=== PATIENT | male | born 1960 | race Caucasian/White ===

== ENCOUNTER 2024-05-10 19:21 | Inpatient (IN) | payer BC, OTHER ==
[2024-05-10] MEDS: ASPIRIN 81 MG PO STA (22:29)
[2024-05-10] MEDS: hydrALAZINE HCL 20 MG/ML 1 ML VIAL IVP STA (22:30)
[2024-05-10 23:17] LABS: Basophils % (A) 0 %; Eosinophils # (A) 0.1 k/uL (0-0.7); Eosinophils % (A) 1 %; HGB 13.1 gm/dL (13.0-17.5); Lymphocytes # (A) 2.1 k/uL (1.0-4.8); Lymphocytes % (A) 32 %; MCH 29.5 pg (25.0-35.0); MCHC 31.3 g/dL (31.0-37.0); MCV 94.4 fL (80.0-100.0); Mean Platelet Volume 9.4; Monocytes # (A) 0.4 k/uL (0-1.0); Monocytes % (A) 7 %; Neutrophils # (A) 3.9 k/uL (1.3-7.7); Neutrophils % (A) 58 %; Platelet Count 343 k/uL (150-450); RBC 4.45 m/uL (4.30-5.90); RDW 12.8 % (11.5-15.5); WBC 6.7 k/uL (3.8-10.6)
[2024-05-10 23:44] LABS: ALT 19 U/L (4-49); AST 33 U/L (17-59); African American GFR (CKD) 45 (>60 ml/min/1.73 sqM); Albumin 4.2 g/dL (3.5-5.0); Alkaline Phosphatase 89 U/L (38-126); Anion Gap 5 mmol/L; Blood Urea Nitrogen 25 mg/dL (9-20); Calcium 9.4 mg/dL (8.4-10.2); Carbon Dioxide 25 mmol/L (22-30); Chloride 109 mmol/L (98-107); Glucose 104 mg/dL (74-99); Magnesium 1.9 mg/dL (1.6-2.3); Non-African American GFR(CKD) 39 (>60 ml/min/1.73 sqM); Potassium 4.6 mmol/L (3.5-5.1); Sodium 139 mmol/L (137-145); Total Bilirubin 0.7 mg/dL (0.2-1.3); Total Protein 6.9 g/dL (6.3-8.2)
[2024-05-11] MEDS: NITROGLYCERIN SL TABS 0.4 MG TAB SUBLINGUAL PRN (00:11)
[2024-05-11 00:23] LABS: Partial Thromboplastin Time 25.5 sec (22.0-30.0); Prothrombin Time 10.6 sec (10.0-12.5)
[2024-05-11] MEDS ORDERED: HEPARIN SODIUM 1,000 UN/ML (10ML VL) IV PRN (00:59)
--- NOTE | 2024-05-11 01:02 | ED ---
General Adult HPI - General Chief complaint: Recheck/Abnormal Lab/Rx Stated complaint: Hypertension Time Seen by Provider: 05/10/24 21:44 Source: patient Mode of arrival: ambulatory Limitations: no limitations - History of Present Illness Initial comments: 64-year-old male presenting for evaluation after elevated blood pressure. Patient is brought in by PD, during intake they noted that his blood pressure was elevated. Patient endorses chest pain intermittently for the last week. Located primarily on the left side of the chest. States that at times he does get some shortness of breath as well. States that the pain feels like a soreness sensation, sometimes it feels like a burning. Denies any cough congestion or sore throat. No fevers or chills. No nausea vomiting or abdominal pain. Symptoms are worse on exertion. - Related Data Allergies Allergy/AdvReac Type Severity Reaction Status Date / Time No Known Allergies Allergy Verified 05/10/24 19:28 Review of Systems ROS Statement: Those systems with pertinent positive or pertinent negative responses have been documented in the HPI. ROS Other: All systems not noted in ROS Statement are negative. Past Medical History History of Any Multi-Drug Resistant Organisms: None Reported Past Surgical History: Orthopedic Surgery Past Psychological History: No Psychological Hx Reported Smoking Status: Current every day smoker Past Alcohol Use History: Daily Past Drug Use History: Methamphetamine General Exam Limitations: no limitations General appearance: alert, in no apparent distress Head exam: Present: atraumatic, normocephalic, normal inspection Eye exam: Present: normal appearance, EOMI Neck exam: Present: normal inspection. Absent: meningismus Respiratory exam: Present: normal lung sounds bilaterally. Absent: respiratory distress, wheezes, rales, rhonchi, stridor Cardiovascular Exam: Present: regular rate, normal rhythm, normal heart sounds. Absent: systolic murmur, diastolic murmur, rubs, gallop, clicks Neurological exam: Present: alert, oriented X3 Psychiatric exam: Present: normal affect, normal mood Skin exam: Present: warm, dry Course Vital Signs 05/10/24 05/10/24 05/10/24 19:23 21:46 22:25 Temperature 97.5 F L Pulse Rate 48 L 86 86 Respiratory 18 16 19 Rate Blood Pressure 187/121 184/137 174/99 O2 Sat by Pulse 99 98 99 Oximetry 05/10/24 05/11/24 23:50 00:48 Temperature Pulse Rate 80 80 Respiratory 19 20 Rate Blood Pressure 163/104 135/86 O2 Sat by Pulse 99 97 Oximetry Medical Decision Making - Medical Decision Making Was pt. sent in by a medical professional or institution ([facility], ESTIMATOR, urgent care, hospital, or [facility]...) When possible be specific @ -No Did you speak to anyone other than the patient for history (EMS, parent, family, police, friend...)? What history was obtained from this source @ -Patient brought in by PD, spoke with Officer Did you review nursing and triage notes (agree or disagree)? Why? @ -I reviewed and agree with nursing and triage notes Were old charts reviewed (outside hosp., previous admission, EMS record, old EKG, old radiological studies, urgent care reports/EKG's, [facility] records)? Report findings @ -No old charts were reviewed Differential Diagnosis (chest pain, altered mental status, abdominal pain women, abdominal pain men, vaginal bleeding, weakness, fever, dyspnea, syncope, heada gregg, dizziness, GI bleed, back pain, seizure, CVA, palpatations, mental health, musculoskeletal)? @ -MDM Differential Chest Pain: Stable Angina, Unstable Angina, STEMI, NSTEMI Aortic Dissection, Pneumothorax, Musculoskeletal, Esophageal Spasm GERD, Cholecystitis, Pancreatitis, Zoster This is not meant to be an all-inclusive list. EKG interpreted by me (3pts min.). @ -EKG shows sinus rhythm with frequent ventricular premature complexes with occasional supraventricular premature complexes. Ventricular rate 84. AZ interval 131. QRS 89. QT 389. QTc 430. X-rays interpreted by me (1pt min.). @ -Formal chest x-ray report is pending, on my interpretation I see changes consistent with COPD with no obvious acute process CT interpreted by me (1pt min.). @ -None done U/S interpreted by me (1pt. min.). @ -None done What testing was considered but not performed or refused? (CT, X-rays, U/S, labs)? Why? @ -None What meds were considered but not given or refused? Why? @ -None Did you discuss the management of the patient with other professionals (professionals i.e. NEST[facility] Castillo, ESTIMATOR, lab, RT, psych nurse, adoption social worker, baton twirler, teacher, adult probation officer, shoe parts caser)? Give summary @ -I spoke with Dr. Gomez who accepts admission Was smoking cessation discussed for >3mins.? @ -No Was critical care preformed (if so, how long)? @ -No Were there social determinants of health that impacted care today? How? (Homelessness, low income, unemployed, alcoholism, drug addiction, pearce sportation, low edu. Level, literacy, decrease access to med. care, group home, rehab)? @ -No Was there de-escalation of care discussed even if they declined (Discuss DNR or withdrawal of care, Hospice)? DNR status @ -No What co-morbidities impacted this encounter? (DM, HTN, Smoking, COPD, CAD, Cancer, CVA, ARF, Chemo, Hep., AIDS, mental health diagnosis, sleep apnea, morbid obesity)? @ -None Was patient admitted / discharged? Hospital course, mention meds given and route, prescriptions, significant lab abnormalities, going to OR and other pertinent info. @ -64-year-old male brought in by PD. During his intake they noted his blood pressure to be high. Here he endorses intermittent chest pain that has been ongoing for about a week. History and physical examination are conducted. EKG shows frequent PVCs. Troponin is 0.072. Patient received aspirin, sublingual nitro. He started on heparin drip and Nitropaste. Chest x-ray shows no obvious acute process, there are changes consistent with COPD. Patient will be admitted for NSTEMI. Patient is agreeable with this plan. I discussed this case with my attending Dr. Monahan. Undiagnosed new problem with uncertain prognosis? @ -No Drug Therapy requiring intensive monitoring for toxicity (Heparin, Nitro, Insulin, Cardizem)? @ -Heparin Were any procedures done? @ -No Diagnosis/symptom? @ -NSTEMI Acute, or Chronic, or Acute on Chronic? @ -Acute Uncomplicated (without systemic symptoms) or Complicated (systemic symptoms)? @ -Complicated Side effects of treatment? @ -No Exacerbation, Progression, or Severe Exacerbation? @ -No Poses a threat to life or bodily function? How? (Chest pain, USA, NC, pneumonia, PE, COPD, DKA, ARF, appy, cholecystitis, CVA, Diverticulitis, Homicidal, Suicidal, threat to staff... and all critical care pts) @ -Yes - Lab Data Result diagrams: 05/10/24 22:27 05/10/24 22:27 Lab Results 05/10/24 05/10/24 05/10/24 Range/Units 22:27 22:27 22:27 WBC 6.7 (3.8-10.6) k/uL RBC 4.45 (4.30-5.90) m/uL Hgb 13.1 (13.0-17.5) gm/dL Hct 42.0 (39.0-53.0) % MCV 94.4 (80.0-100.0) fL MCH 29.5 (25.0-35.0) pg MCHC 31.3 (31.0-37.0) g/dL RDW 12.8 (11.5-15.5) % Plt Count 343 (150-450) k/uL MPV 9.4 Neutrophils % 58 % Lymphocytes % 32 % Monocytes % 7 % Eosinophils % 1 % Basophils % 0 % Neutrophils # 3.9 (1.3-7.7) k/uL Lymphocytes # 2.1 (1.0-4.8) k/uL Monocytes # 0.4 (0-1.0) k/uL Eosinophils # 0.1 (0-0.7) k/uL Basophils # 0.0 (0-0.2) k/uL PT 10.6 (10.0-12.5) sec INR 1.0 (<1.2) APTT 25.5 (22.0-30.0) sec Sodium 139 (137-145) mmol/L Potassium 4.6 (3.5-5.1) mmol/L Chloride 109 H (98-107) mmol/L Carbon Dioxide 25 (22-30) mmol/L Anion Gap 5 mmol/L BUN 25 H (9-20) mg/dL Creatinine 1.77 H (0.66-1.25) mg/dL Est GFR (CKD-EPI)AfAm 45 (>60 ml/min/1.73 sqM) Est GFR (CKD-EPI)NonAf 39 (>60 ml/min/1.73 sqM) Glucose 104 H (74-99) mg/dL Calcium 9.4 (8.4-10.2) mg/dL Magnesium 1.9 (1.6-2.3) mg/dL Total Bilirubin 0.7 (0.2-1.3) mg/dL AST 33 (17-59) U/L ALT 19 (4-49) U/L Alkaline Phosphatase 89 (38-126) U/L Troponin I (0.000-0.034) ng/mL Total Protein 6.9 (6.3-8.2) g/dL Albumin 4.2 (3.5-5.0) g/dL 05/10/24 Range/Units 22:27 WBC (3.8-10.6) k/uL RBC (4.30-5.90) m/uL Hgb (13.0-17.5) gm/dL Hct (39.0-53.0) % MCV (80.0-100.0) fL MCH (25.0-35.0) pg MCHC (31.0-37.0) g/dL RDW (11.5-15.5) % Plt Count (150-450) k/uL MPV Neutrophils % % Lymphocytes % % Monocytes % % Eosinophils % % Basophils % % Neutrophils # (1.3-7.7) k/uL Lymphocytes # (1.0-4.8) k/uL Monocytes # (0-1.0) k/uL Eosinophils # (0-0.7) k/uL Basophils # (0-0.2) k/uL PT (10.0-12.5) sec INR (<1.2) APTT (22.0-30.0) sec Sodium (137-145) mmol/L Potassium (3.5-5.1) mmol/L Chloride (98-107) mmol/L Carbon Dioxide (22-30) mmol/L Anion Gap mmol/L BUN (9-20) mg/dL Creatinine (0.66-1.25) mg/dL Est GFR (CKD-EPI)AfAm (>60 ml/min/1.73 sqM) Est GFR (CKD-EPI)NonAf (>60 ml/min/1.73 sqM) Glucose (74-99) mg/dL Calcium (8.4-10.2) mg/dL Magnesium (1.6-2.3) mg/dL Total Bilirubin (0.2-1.3) mg/dL AST (17-59) U/L ALT (4-49) U/L Alkaline Phosphatase (38-126) U/L Troponin I 0.072 H* (0.000-0.034) ng/mL Total Protein (6.3-8.2) g/dL Albumin (3.5-5.0) g/dL Disposition Clinical Impression: NSTEMI (non-ST elevated myocardial infarction) Disposition: ADMITTED IP TO THIS HOSP Condition: Serious Referrals: None,Stated [Primary Care Provider] - 1-2 days Time of Disposition: 01:35
[2024-05-11] MEDS: MAGNESIUM SULFATE-D5W PMX 1 GM in DEXTROSE/WATER 1 100ML.BAG IVPB SCH (01:32)
[2024-05-11] MEDS ORDERED: NALOXONE 0.4 MG/ML 1 ML VIAL IV PRN (01:32)
[2024-05-11] MEDS: MORPHINE SULFATE 4 MG/ML SYRINGE IVP STA (01:43)
[2024-05-11] MEDS: HEPARIN SOD,PORK IN 0.45% NACL 25,000 UNIT in 0.45% NACL 1 250ML.BAG IV SCH (01:44)
[2024-05-11] MEDS: HEPARIN SODIUM 1,000 UN/ML (10ML VL) IV ONE (01:45)
[2024-05-11] MEDS: NITROGLYCERIN OINT 1 INCH/GM PACKET TOPICAL STA (01:48)
--- NOTE | 2024-05-11 03:06 | XR ---
EXAM: XR Chest, 2 Views CLINICAL HISTORY: ITS.REASON XR Reason: Chest Pain TECHNIQUE: Frontal and lateral views of the chest. COMPARISON: None FINDINGS: Hardware: None. Lungs/pleura: Normal. No focal consolidation. No pleural effusion or pneumothorax. Heart/mediastinum: Normal. No cardiomegaly. Soft tissues: Tiny densities in the left axillary region. Bones: No acute fracture. Upper abdomen: Normal. Other: Surgical clips near the region of the GE junction. IMPRESSION: No acute disease identified.
--- NOTE | 2024-05-11 07:06 | P.HPIM ---
History of Present Illness H&P Date: 05/11/24 Chief Complaint: Chest pain 64-year-old male denies any significant past medical history Patient is accompanied by master police detective he was booked for drug abuse while doing the intake he was found to have elevated blood pressure for which she was brought into the hospital for evaluation. Upon presentation he started reporting left-sided chest pain that is been going on for couple weeks off-and-on not related to any physical activity he claims that usually starts while resting doing nothing rates the pain as 8 out of 10 in severity sharp sometimes pressure radiating to the left shoulder associated with some dizziness and shortness of breath denies any sweating nausea vomiting palpitations. Patient denies any cardiac history denies any cardiac workup he denies any h istory of GERD. Patient denies any drug abuse however has accompanied master police detective indicated that he is known for meth abuse Patient admits to tobacco smoking denies any heavy alcohol Patient denies any history of blood clots denies any cardiac workup denies any recent hospitalization denies any fevers chills coughing denies any abdominal pain diarrhea changes in bowel or urinary habits denies any GI bleeding review of systems Pertinent positives as noted in HPI. All other systems were reviewed and are negative on exam Constitutional: No acute distress, conversant, pleasant Eyes: Anicteric sclerae, moist conjunctiva, Pupils equal round reactive to light ENMT: NC/AT Oropharynx clear, no erythema, or exudates Neck: Supple, no masses, or JVD Lungs: Clear to auscultation Clear to percussion Normal respiratory effort, no accessory muscle use Cardiovascular: Heart regular in rate and rhythm, No murmurs, gallops, or rubs No peripheral edema Pain is reproducible upon palpating the chest Abdominal: Soft Nontender, no guarding, rebound or rigidity Abdomen moving with respiration Normoactive bowel sounds Extremities: No digital cyanosis No clubbing Pedal pulses intact and symmetrical Radial pulses intact and symmetrical No calf tenderness Psychiatric: Alert and oriented to person, place and time Neuro Muscles Strength 5/5 in all 4 extremities Sensation to light touch grossly present throughout Cranial nerves II-XII grossly intact Past Medical History History of Any Multi-Drug Resistant Organisms: None Reported Past Surgical History: Orthopedic Surgery Past Psychological History: No Psychological Hx Reported Smoking Status: Current every day smoker Past Alcohol Use History: Daily Past Drug Use History: Methamphetamine Medications and Allergies Allergies Allergy/AdvReac Type Severity Reaction Status Date / Time No Known Allergies Allergy Verified 05/10/24 19:28 Physical Exam Vitals: Vital Signs Temp Pulse Resp BP Pulse Ox 05/11/24 06:11 65 18 155/98 100 05/11/24 04:33 67 18 123/60 97 05/11/24 03:56 75 18 151/93 98 05/11/24 00:48 80 20 135/86 97 05/10/24 23:50 80 19 163/104 99 05/10/24 22:25 86 19 174/99 99 05/10/24 21:46 86 16 184/137 98 05/10/24 19:23 97.5 F L 48 L 18 187/121 99 Intake and Output 05/10/24 05/10/24 05/11/24 14:59 22:59 06:59 Other: Weight 67.132 kg Results CBC & Chem 7: 05/10/24 22:27 05/10/24 22:27 Labs: Abnormal Lab Results - Last 24 Hours (Table) 05/10/24 05/10/24 05/11/24 Range/Units 22:27 22:27 04:03 Chloride 109 H (98-107) mmol/L BUN 25 H (9-20) mg/dL Creatinine 1.77 H (0.66-1.25) mg/dL Glucose 104 H (74-99) mg/dL Troponin I 0.072 H* 0.062 H* (0.000-0.034) ng/mL Assessment and Plan Assessment: 64-year-old male with no significant past medical history coming in for uncontrolled blood pressure and chest pain I discussed case with ED doctor and accepted the admission for NSTEMI with anticipated length of stay more than 2 midnights NSTEMI Elevated troponin 0.072 trending down Nitro as needed for chest pain Cardiac monitoring EKG showing frequent PVCs and frequent supra ventricular premature atrial comp lexes otherwise no acute ST changes Chest x-ray showed no acute cardiopulmonary process Continue with aspirin daily Heparin drip for ACS protocol IV fluid hydration normal saline 75 cc/h Supplemental oxygen as needed Acute kidney injury BUN 25 creatinine 1.77 both elevated no establish baseline Sodium 139 unremarkable potassium 4.6 unremarkable Monitor renal function Monitor urine output Check renal ultrasound Polysubstance abuse Check urine drug screen Liver enzymes unremarkable total bili 0.7 AST 33 ALT 19 CBC unremarkable white count 6.7 hemoglobin 13 Full code DVT prophylaxis on heparin drip per ACS protocol
[2024-05-11] MEDS: ATORVASTATIN 40 MG TAB PO SCH (08:51)
[2024-05-11] MEDS: METOPROLOL TARTRATE 25 MG TAB PO SCH (08:51)
[2024-05-11] MEDS: ASPIRIN 81 MG PO SCH (08:51)
[2024-05-11] MEDS: SODIUM CHLORIDE 0.9% 1,000 ML IV SCH (08:51)
--- NOTE | 2024-05-11 09:36 | US ---
EXAMINATION TYPE: US kidneys/renal and bladder DATE OF EXAM: 05/11/2024 COMPARISON: NONE CLINICAL INDICATION: Male, 64 years old with history of CATHRYN; cathryn EXAM MEASUREMENTS: Right Kidney: 7.8 x 3.6 x 3.6 cm Left Kidney: 6.1 x 3.3 x 3.4 cm Right Kidney: Atrophic Left Kidney: Atrophic Bladder: anechoic Bilateral Jets seen: right only There is no evidence for hydronephrosis at this point in time. No nephrolithiasis is seen. No aniya s are identified. The urinary bladder is anechoic. Bilateral ureteral jets are seen. IMPRESSION: 1. Atrophic kidneys without evidence for obstructive uropathy. 2. Nonvisualization the left ureter. [facility], , 05/11/2024 9:34 AM
--- NOTE | 2024-05-11 12:13 | P.CRDCN ---
History of Present Illness History of present illness: HISTORY OF PRESENT ILLNESS: This is a 64-year-old male with a past medical history significant for polysubstance abuse. Patient does not follow with a junior web designer. We have been asked to see the patient in consultation for elevated troponins. Patient examined at the bedside in the emergency room. Patient is currently in [facility]. He reports he began to have to chest pain. He was brought to the ER for further evaluation. Patient reports generalized pain and discomfort. He also reports a headache. He reports these symptoms have been ongoing for the past few weeks. Patient was found to have significantly elevated blood pressures upon admission to the hospital with a reading of 187/121. He denies a previous history of hypertension. He does not take any prescription medications. He is a current smoker. He does report alcohol use and states he drinks 1/5 of liquor every 4 days. Patient also reports a history of drug abuse including methamphetamines and cocaine. DIAGNOSTICS: - EKG reveals sinus mechanism with PVCs. LVH. - Chest xray negative for acute process - Laboratory data: WBC 6.7. Hemoglobin 13.1. Platelet count 343. Sodium 139. Potassium 4.6. BUN 25. Creatinine 1.77. Magnesium 1.9. Troponin 0.072. 0.062. 0.065. - Current home cardiac medications include none. - No previous echocardiogram, stress test, or cardiac catheterization available in EMR for review REVIEW OF SYSTEMS: At the time of my exam: CONSTITUTIONAL: Denies fever or chills. HEENT: Denies blurred vision, vision changes, or eye pain. Denies hemoptysis CARDIOVASCULAR: Denies chest pain. Denies orthopnea. Denies PND. Denies palpitations RESPIRATORY: Denies shortness of breath. GASTROINTESTINAL: Denies abdominal pain. Denies nausea or vomiting. HEMATOLOGIC: Denies bleeding disorders. GENITOURINARY: Denies any blood in urine. SKIN: Denies pruitis. Denies rash. PHYSICAL EXAM: VITAL SIGNS: Reviewed. GENERAL: Well-developed in no acute distress. HEENT: Head is normocephalic. Pupils are equal, round. Sclerae anicteric. Mucous membranes of the mouth are moist. Neck supple. No JVD or thyromegaly LUNGS: Respirations even and unlabored. Lungs essentially clear to auscultation bilaterally. HEART: Regular rate and rhythm. S1 and S2 heard. ABDOMEN: Soft. Nondistended. Nontender. EXTREMITIES: Normal range of motion. No clubbing or cyanosis. Peripheral pulses intact. No lower extremity edema NEUROLOGIC: Awake and alert. Oriented x 3. ASSESSMENT: Hypertensive emergency Chest pain, likely secondary to above Elevated troponins, flat, likely type II GA secondary to uncontrolled blood pressures, however cannot rule out underlying CAD Acute kidney injury, baseline unknown History of polysubstance abuse Nicotine dependence Alcohol abuse, reports a 1/5 liquor every 4 days PLAN: Obtain 2D echo to assess cardiac structure and function Continue aspirin and atorvastatin Add amlodipine 10 mg daily for optimal blood pressure control Metoprolol contraindicated with cocaine use. Patient states he does not plan to go back to using drugs and would like to stay on the metoprolol. Instructed patient that if he uses cocaine in the future, metoprolol will need to be discontinued. Patient verbalized understanding. Continue IV heparin N.p.o. at midnight Patient to undergo Lexiscan stress test tomorrow Further recommendations pending patient course Nurse practitioner note has been reviewed by physician. Signing provider agrees with the documented findings, assessment, and plan of care documented by MANAGER SYSTEM as a scribe. Past Medical History History of Any Multi-Drug Resistant Organisms: None Reported Past Surgical History: Orthopedic Surgery Past Psychological History: No Psychological Hx Reported Smoking Status: Current every day smoker Past Alcohol Use History: Daily Past Drug Use History: Methamphetamine Medications and Allergies Home Medications Medication Instructions Recorded Confirmed Type No Known Home Medications 05/11/24 05/11/24 History Allergies Allergy/AdvReac Type Severity Reaction Status Date / Time No Known Allergies Allergy Verified 05/11/24 10:17 Physical Exam Vitals: Vital Signs Temp Pulse Resp BP Pulse Ox 05/11/24 08:48 87 16 164/120 99 05/11/24 06:11 65 18 155/98 100 05/11/24 04:33 67 18 123/60 97 05/11/24 03:56 75 18 151/93 98 05/11/24 00:48 80 20 135/86 97 05/10/24 23:50 80 19 163/104 99 05/10/24 22:25 86 19 174/99 99 05/10/24 21:46 86 16 184/137 98 05/10/24 19:23 97.5 F L 48 L 18 187/121 99 Intake and Output 05/10/24 05/11/24 05/11/24 22:59 06:59 14:59 Other: Weight 67.132 kg Results 05/10/24 22:27 05/10/24 22:27 Cardiac Enzymes 05/10/24 05/10/24 05/11/24 Range/Units 22:27 22:27 04:03 AST 33 (17-59) U/L Troponin I 0.072 H* 0.062 H* (0.000-0.034) ng/mL 05/11/24 Range/Units 06:44 AST (17-59) U/L Troponin I 0.065 H* (0.000-0.034) ng/mL Coagulation 05/10/24 05/11/24 Range/Units 22:27 06:44 PT 10.6 (10.0-12.5) sec APTT 25.5 46.5 H (22.0-30.0) sec CBC 05/10/24 Range/Units 22:27 WBC 6.7 (3.8-10.6) k/uL RBC 4.45 (4.30-5.90) m/uL Hgb 13.1 (13.0-17.5) gm/dL Hct 42.0 (39.0-53.0) % Plt Count 343 (150-450) k/uL Comprehensive Metabolic Panel 05/10/24 Range/Units 22:27 Sodium 139 (137-145) mmol/L Potassium 4.6 (3.5-5.1) mmol/L Chloride 109 H (98-107) mmol/L Carbon Dioxide 25 (22-30) mmol/L BUN 25 H (9-20) mg/dL Creatinine 1.77 H (0.66-1.25) mg/dL Glucose 104 H (74-99) mg/dL Calcium 9.4 (8.4-10.2) mg/dL AST 33 (17-59) U/L ALT 19 (4-49) U/L Alkaline Phosphatase 89 (38-126) U/L Total Protein 6.9 (6.3-8.2) g/dL Albumin 4.2 (3.5-5.0) g/dL Current Medications Generic Name Dose Route Start Last Admin Trade Name Freq PRN Reason Stop Dose Admin Aspirin 81 mg 05/11/24 09:00 05/11/24 08:51 Aspirin 81 Mg PO 81 mg DAILY JOSIE Administration Atorvastatin Calcium 40 mg 05/11/24 09:00 05/11/24 08:51 Atorvastatin 40 Mg Tab PO 40 mg DAILY JOSIE Administration Heparin Sodium (Porcine) 0 unit 05/11/24 00:59 Heparin Sodium 1,000 Un/Ml (10ml Vl) IV PER PROTOCOL PRN Low PTT Protocol Heparin Sodium/Sodium Chloride 250 mls @ 8.056 mls/hr 05/11/24 01:00 05/11/24 01:44 25,000 unit/ Sodium Chloride IV 12 units/kg/hr .Q24H JOSIE 8.056 mls/hr Administration Protocol 12 UNITS/KG/HR Sodium Chloride 1,000 mls @ 100 mls/hr 05/11/24 08:15 05/11/24 08:51 Saline 0.9% IV 100 mls/hr .Q10H JOSIE Administration Metoprolol Tartrate 25 mg 05/11/24 09:00 05/11/24 08:51 Metoprolol Tartrate 25 Mg Tab PO 25 mg BID JOSIE Administration Naloxone HCl 0.2 mg 05/11/24 01:32 Naloxone 0.4 Mg/Ml 1 Ml Vial IV Q2M PRN Opioid Reversal Nitroglycerin 0.4 mg 05/10/24 23:51 05/11/24 00:11 Nitroglycerin Sl Tabs 0.4 Mg Tab SUBLINGUAL 0.4 mg Q5M PRN Administration Chest Pain Intake and Output 05/10/24 05/11/24 05/11/24 22:59 06:59 14:59 Other: Weight 67.132 kg 05/10/24 22:27 05/10/24 22:27
[2024-05-11] MEDS: amLODIPine 10 MG TAB PO SCH (12:45)
[2024-05-11] MEDS: KETOROLAC 15 MG/ML 1 ML VIAL IVP STA (14:24)
[2024-05-11] MEDS: diphenhydrAMINE 50 MG/ML 1 ML VIAL IVP STA (14:27)
[2024-05-11] MEDS: PROCHLORPERAZINE INJ 10 MG/2 ML VIAL IVP STA (14:31)
--- NOTE | 2024-05-11 15:06 | P.PN ---
Subjective Progress Note Date: 05/11/24 Hospital course: Patient is a 64-year-old male with a past medical history of methamphetamine abuse and nicotine dependence. He presented to the emergency department in custody of [facility] with reports of chest pain. Upon arrival to our facility, patient underwent evaluation in the emergency department. Vital signs upon arrival show blood pressure 187/121, heart rate 48, respiratory rate 18, temp 97.5 F, and SpO2 of 99% on room air. EKG was completed showing normal sinus rhythm at 84 bpm with frequent PVCs. Chest x-ray negative for acute cardiopulmonary process. Labs completed and reviewed. CBC unremarkable. Coagulation profile normal findings. BMP showing hyperchloremia with chloride of 109 and elevated renal function with BUN of 25, creatinine 1.77, GFR of 39. Blood glucose 104. Magnesium 1.9. Liver profile unremarkable. Troponin elevated at 0.072. Patient started on heparin infusion for treatment of NSTEMI and admitted under our services for NSTEMI and acute kidney injury with consultation to cardiology. Troponins trended resulting at 0.072, 0.062, 0.065. Ultrasound kidneys and bladder showing atrophic kidneys without evidence for obstructive uropathy. Physical exam: Vital signs reviewed and stable. General: Nontoxic, no distress and appears stated age. Derm: Skin warm and dry, normal coloration for ethnicity. Head: Atraumatic, normocephalic and symmetric. Eyes: EOM's intact, no lid lag, and anicteric sclera Mouth: no lip lesions, mucus membranes moist Cardiovascular: regular rate and rhythm with normal S1S2, no murmur, positive posterior tibial pulses bilaterally, and cap refill < 2 seconds. Lungs: Respirations even, regular, and unlabored on room air. Lungs CTA bilaterally, no rhonchi, no rales, no wheezing, and no accessory muscle usage. Abdominal: soft, nontender to palpation, no guarding, no appreciable organomegaly Ext: ROM intact. No gross muscle atrophy, no edema, no contractures Neuro: Speech clear, face symmetrical and CN II-XII grossly intact with no noted focal neuro deficits Psych: Alert and oriented to person, place, time, and situation. Appropriate and pleasant affect. Assessment and Plan of Care: NSTEMI Hypertensive urgency History of methamphetamine abuse -Continue heparin infusion with close monitoring of PTT for goal therapeutic range of 45 to 79 seconds. -Patient to remain on continuous telemetry monitoring -Cardiology consulted, appreciate recommendations -Patient started on aspirin 81 mg daily, metoprolol 25 mg twice daily and atorvastatin 40 mg daily. -Order placed for urine drug screen -Echocardiogram to be completed. Acute kidney injury -Order placed for urinalysis -Ultrasound kidneys and bladder revealed atrophic kidneys without evidence for obstructive uropathy. -Patient to be provided with gentle IV fluid hydration with 0.9% normal saline at 100 cc/h. -Continue to monitor renal function closely. CODE STATUS: Full code DVT prophylaxis: Heparin Anticipated discharge date: Pending clinical course Anticipated discharge place: Return to detention in custody of [facility] Patient was seen independently by Nurse Pracitioner. This document was prepared using [employer] dictation software. Please allow for errors in naval surface fire support planner, while rare they do occur. Erik Jacobs NP rendered care for this patient independently, reviewed the findings and plan as documented in the note above. I did not physically speak with or examine the patient on this date. Objective - Vital Signs Vital signs: Vital Signs Temp 97.5 F L 05/10/24 19:23 Pulse 65 05/11/24 06:11 Resp 18 05/11/24 06:11 BP 155/98 05/11/24 06:11 Pulse Ox 100 05/11/24 06:11 FiO2 Intake & Output 05/10/24 05/11/24 05/11/24 18:59 06:59 18:59 Weight 67.132 kg - Labs CBC & Chem 7: 05/12/24 07:38 05/12/24 07:38 Labs: Abnormal Lab Results - Last 24 Hours (Table) 05/10/24 05/10/24 05/11/24 Range/Units 22:27 22:27 04:03 APTT (22.0-30.0) sec Chloride 109 H (98-107) mmol/L BUN 25 H (9-20) mg/dL Creatinine 1.77 H (0.66-1.25) mg/dL Glucose 104 H (74-99) mg/dL Troponin I 0.072 H* 0.062 H* (0.000-0.034) ng/mL 05/11/24 05/11/24 Range/Units 06:44 06:44 APTT 46.5 H (22.0-30.0) sec Chloride (98-107) mmol/L BUN (9-20) mg/dL Creatinine (0.66-1.25) mg/dL Glucose (74-99) mg/dL Troponin I 0.065 H* (0.000-0.034) ng/mL
[2024-05-12 05:29] LABS: Urine Alcohol Negative (Negative); Urine Barbiturate Negative (Negative); Urine Cocaine Negative (Negative); Urine Methadone Negative (Negative); Urine Opiates Negative (Negative); Urine Phencyclidine Negative (Negative)
[2024-05-12] MEDS ORDERED: AMINOPHYLLINE 500 MG/20 ML VIAL IV PRN (06:00)
[2024-05-12] MEDS ORDERED: REGADENOSON 0.4 MG/5 ML SYRINGE IV PRN (06:00)
[2024-05-12] MEDS ORDERED: CAFFEINE CITRATE 60 MG/3 ML VIAL IV PRN (06:00)
[2024-05-12] MEDS: ACETAMINOPHEN TAB 325 MG TAB PO PRN (06:16)
[2024-05-12 07:47] VITALS: RESP 16
[2024-05-12 08:03] LABS: Basophils % (A) 0 %; Eosinophils # (A) 0.1 k/uL (0-0.7); Eosinophils % (A) 2 %; HCT 43.2 % (39.0-53.0); HGB 14.1 gm/dL (13.0-17.5); Lymphocytes # (A) 2.3 k/uL (1.0-4.8); Lymphocytes % (A) 36 %; MCH 30.8 pg (25.0-35.0); MCHC 32.6 g/dL (31.0-37.0); MCV 94.4 fL (80.0-100.0); Mean Platelet Volume 9.5; Monocytes # (A) 0.4 k/uL (0-1.0); Monocytes % (A) 6 %; Neutrophils # (A) 3.4 k/uL (1.3-7.7); Neutrophils % (A) 54 %; Platelet Count 388 k/uL (150-450); RBC 4.57 m/uL (4.30-5.90); RDW 13.2 % (11.5-15.5); WBC 6.3 k/uL (3.8-10.6)
[2024-05-12 08:10] LABS: Partial Thromboplastin Time 26.3 sec (22.0-30.0)
[2024-05-12 08:42] LABS: ALT 17 U/L (4-49); AST 27 U/L (17-59); African American GFR (CKD) 54 (>60 ml/min/1.73 sqM); Albumin 3.7 g/dL (3.5-5.0); Alkaline Phosphatase 82 U/L (38-126); Anion Gap 9 mmol/L; Blood Urea Nitrogen 22 mg/dL (9-20); Carbon Dioxide 25 mmol/L (22-30); Chloride 106 mmol/L (98-107); Glucose 77 mg/dL (74-99); Non-African American GFR(CKD) 47 (>60 ml/min/1.73 sqM); Potassium 4.8 mmol/L (3.5-5.1); Sodium 140 mmol/L (137-145); Total Bilirubin 0.8 mg/dL (0.2-1.3); Total Protein 6.4 g/dL (6.3-8.2)
[2024-05-12 11:12] VITALS: TEMP 97.8
--- NOTE | 2024-05-12 11:13 | CA ---
Lexiscan Nuclear Stress Test Report Name: Ethan Davis Exam Date: 05/12/2024 09:45 Exam Location: [place] Stress Ht (in): 70 Wt (lb): 148 BSA: 1.84 Ordering Phys: Malinda Hoyt Referring Phys: MARY Technologist: James Valdivia Age: 64 Gender: M : 1960 Procedure CPT: Indications: Reflex order-Stress test ICD-10 Codes: Patient History: Medications: SEE CHART Meds past 24 hrs: Pretest Chest Pain: STRESS TEST Lexiscan Protocol Exercise Duration (min:sec): 01:[address] Depressions (mm): Angina Score: Rodrigez Score: Resting HR (bpm): 55 Peak HR (bpm): 77 Resting BP (mmHg): 140 / 81 Peak BP (mmHg): 136 / 83 MPHR: 154 Target HR: 131 % MPHR: 50 METS: 1.0 Total Dose: Peak Dose: Atropine: Double Product: 56271 BP Response: Stress Termination: INFUSION COMPLETE Stress Symptoms: No chest pain or symptoms Stress Summary: ECG ANALYSIS Resting ECG: Baseline EKG shows sinus rhythm changes of left ventricular hypertrophy Stress ECG: Patient was given intravenous Lexiscan as a protocol did not have chest pain or diagnostic ST segment depression occasional PVCs are noted CONCLUSIONS Inconclusive EKG portion of the stress test due to baseline EKG abnormalities Cardial lead portion of the stress test will be reported separately Dr. Kyler Unger MD (Electronically Signed) Final Date: 12 May 2024 11:12
--- NOTE | 2024-05-12 12:46 | NM ---
EXAMINATION TYPE: NM stress lexiscan cardiolite DATE OF EXAM: 05/12/2024 COMPARISON: NONE CLINICAL INDICATION: Male, 64 years old with history of CP; TECHNIQUE: After the intravenous administration of 10.5 mCi Tc 99m Sestamibi - Cardiolite resting SP ECT images acquired 45 minutes post injection. The patient received 0.4mg Lexiscan, 26.3 mCi Tc 99m Sestamibi - Stress images obtained [address] injection FINDINGS: Review of stress and rest SPECT images demonstrates small reversible defect apical septal wall. Gated analysis shows normal wall motion with an estimated left ventricular ejection fraction of 42 %. IMPRESSION: SPECT images demonstrates small reversible defect apical septal wall. [facility], , 05/12/2024 12:44 PM
--- NOTE | 2024-05-12 13:38 | P.PN ---
Subjective HISTORY OF PRESENT ILLNESS: This is a 64-year-old male with a past medical history significant for polysubstance abuse. Patient does not follow with a chief merchandising officer. We have been asked to see the patient in consultation for elevated troponins. Patient examined at the bedside in the emergency room. Patient is currently in [facility]. He reports he began to have to chest pain. He was brought to the ER for further evaluation. Patient reports generalized pain and discomfort. He also reports a headache. He reports these symptoms have been ongoing for the past few weeks. Patient was found to have significantly elevated blood pressures upon admission to the hospital with a reading of 187/121. He denies a previous history of hypertension. He does not take any prescription medications. He is a current smoker. He does report alcohol use and states he drinks 1/5 of liquor every 4 days. Patient also reports a history of drug abuse including methamphetamines and cocaine. DIAGNOSTICS: - EKG reveals sinus mechanism with PVCs. LVH. - Chest xray negative for acute process - Laboratory data: WBC 6.7. Hemoglobin 13.1. Platelet count 343. Sodium 139. Potassium 4.6. BUN 25. Creatinine 1.77. Magnesium 1.9. Troponin 0.072. 0.062. 0.065. - Current home cardiac medications include none. - No previous echocardiogram, stress test, or cardiac catheterization available in EMR for review 05/12/2024 Patient examined this afternoon at the bedside. Patient currently denies chest pain or pressure. He denies shortness of breath. Patient's blood pressure has improved. Recent reading of 135/71. Patient underwent Lexiscan stress test today revealing small reversible defect apical septal wall. Dr. Harrison independently reviewed Lexiscan images and no reversible ischemia noted per his interpretation. PHYSICAL EXAM: VITAL SIGNS: Reviewed. GENERAL: Well-developed in no acute distress. HEENT: Head is normocephalic. Pupils are equal, round. Sclerae anicteric. Mucous membranes of the mouth are moist. Neck supple. No JVD or thyromegaly LUNGS: Respirations even and unlabored. Lungs essentially clear to auscultation bilaterally. HEART: Regular rate and rhythm. S1 and S2 heard. ABDOMEN: Soft. Nondistended. Nontender. EXTREMITIES: Normal range of motion. No clubbing or cyanosis. Peripheral pulses intact. No lower extremity edema NEUROLOGIC: Awake and alert. Oriented x 3. ASSESSMENT: Hypertensive emergency Chest pain, likely secondary to above Elevated troponins, flat, likely type II MA secondary to uncontrolled blood pressures, however cannot rule out underlying CAD Acute kidney injury, baseline unknown History of polysubstance abuse Nicotine dependence Alcohol abuse, reports a 1/5 liquor every 4 days PLAN: Obtain 2D echo to assess cardiac structure and function Continue aspirin and atorvastatin Metoprolol contraindicated with cocaine use. Patient states he does not plan to go back to using drugs and would like to stay on the metoprolol. Instructed patient that if he uses cocaine in the future, metoprolol will need to be discontinued. Patient verbalized understanding. Discontinue IV heparin Dr. Harrison independently reviewed Lexiscan images and no reversible ischemia noted per his interpretation. Given patient's abnormal kidney function along with no further episodes of chest pain, no plans for cardiac catheterization at this time. Patient may be discharged this evening after echocardiogram is completed Nurse practitioner note has been reviewed by physician. Signing provider agrees with the documented findings, assessment, and plan of care documented by AIRCONDITIONING ENGINEER as a scribe. Objective - Vital Signs Vital signs: Vital Signs Temp 97.8 F 05/12/24 11:11 Pulse 70 05/12/24 11:11 Resp 16 05/12/24 11:11 BP 135/71 05/12/24 11:11 Pulse Ox 91 L 05/12/24 11:11 FiO2 Intake & Output 05/11/24 05/12/24 05/12/24 18:59 06:59 18:59 Intake Total 752.947 36.923 Output Total 700 Balance 52.947 36.923 Weight 67.132 kg Intake: Intake, IV Titration 212.947 36.923 Amount Heparin Sod,Pork in 0.45% 212.947 36.923 NaCl 25,000 unit In 0.45 % NaCl 1 250ml.bag @ 12 UNITS/KG/HR 8.056 mls/hr IV .Q24H JOSIE Rx#: [id number] Oral 540 Output: Urine 700 Other: # Voids 0 - Labs CBC & Chem 7: 05/12/24 07:38 05/12/24 07:38 Labs: Abnormal Lab Results - Last 24 Hours (Table) 05/11/24 05/12/24 Range/Units 17:29 07:38 BUN 22 H (9-20) mg/dL Creatinine 1.53 H (0.66-1.25) mg/dL Ur Amphetamine Screen Positive A (Negative)
--- NOTE | 2024-05-12 14:25 | P.PN ---
Subjective Progress Note Date: 05/12/24 Hospital course: Patient is a 64-year-old male with a past medical history of methamphetamine abuse and nicotine dependence. He presented to the emergency department in custody of [facility] with reports of chest pain. Upon arrival to our facility, patient underwent evaluation in the emergency department. Vital signs upon arrival show blood pressure 187/121, heart rate 48, respiratory rate 18, temp 97.5 F, and SpO2 of 99% on room air. EKG was completed showing normal sinus rhythm at 84 bpm with frequent PVCs. Chest x-ray negative for acute cardiopulmonary process. Labs completed and reviewed. CBC unremarkable. Coagulation profile normal findings. BMP showing hyperchloremia with chloride of 109 and elevated renal function with BUN of 25, creatinine 1.77, GFR of 39. Blood glucose 104. Magnesium 1.9. Liver profile unremarkable. Troponin elevated at 0.072. Patient started on heparin infusion for treatment of NSTEMI and admitted under our services for NSTEMI and acute kidney injury with consultation to cardiology. Troponins trended resulting at 0.072, 0.062, 0.065. Ultrasound kidneys and bladder showing atrophic kidneys without evidence for obstructive uropathy. Physical exam: Patient seen and fully evaluated at bedside upon return from Lexiscan stress test. Patient reports continued chest pain/discomfort states constant and un changed. He denies having any headache, lightheadedness, dizziness, shortness of breath, cough or congestion, or experiencing any numbness/tingling/weakness/swelling in his extremities. Vital signs reviewed and stable. General: Nontoxic, no distress and appears stated age. Derm: Skin warm and dry, normal coloration for ethnicity. Head: Atraumatic, normocephalic and symmetric. Eyes: EOM's intact, no lid lag, and anicteric sclera Mouth: no lip lesions, mucus membranes moist Cardiovascular: regular rate and rhythm with normal S1S2, no murmur, positive posterior tibial pulses bilaterally, and cap refill < 2 seconds. Lungs: Respirations even, regular, and unlabored on room air. Lungs CTA bilaterally, no rhonchi, no rales, no wheezing, and no accessory muscle usage. Abdominal: soft, nontender to palpation, no guarding, no appreciable organomegaly Ext: ROM intact. No gross muscle atrophy, no edema, no contractures Neuro: Speech clear, face symmetrical and CN II-XII grossly intact with no noted focal neuro deficits Psych: Alert and oriented to person, place, time, and situation. Appropriate and pleasant affect. Assessment and Plan of Care: NSTEMI Hypertensive urgency History of methamphetamine abuse -Stress test was reported to be inconclusive EKG portion of the stress test due to reports of baseline EKG abnormalities. -Lexiscan nuclear stress test reviewed reporting small reversible defect of apical septal wall with an EF of 42%. -Cardiology following, discussed plan of care with cardiac APPLE PICKER whom stated Lexiscan nuclear stress test reports reversible defect however Dr. Harrison reviewed stating normal finding with no reversible ischemia noted. -Patient to remain on continuous telemetry monitoring -Patient started on aspirin 81 mg daily, metoprolol 25 mg twice daily and atorvastatin 40 mg daily. -Drug screen positive for amphetamines -Echocardiogram to be completed. Acute kidney injury, improving -Order placed for urinalysis and RN calling lab regarding these resolved as urine drug screen was positive for methamphetamines however urinalysis still pending results. -Ultrasound kidneys and bladder revealed atrophic kidneys without evidence for obstructive uropathy. -Continue with gentle IV fluid hydration with 0.9% normal saline at 100 cc/h. -Continue to monitor renal function closely. Data and imaging reviewed: Stress test was reported to be inconclusive EKG portion of the stress test due to reports of baseline EKG abnormalities. Lexiscan nuclear stress test reviewed reporting small reversible defect of apical septal wall with an EF of 42%. Morning labs reviewed. CBC unremarkable. Coagulation profile normal findings. BMP showing improvement of CATHRYN with BUN of 22, creatinine of 1.53, GFR 47. Magnesium 2.0. Liver profile unremarkable. Urine drug screen was positive for amphetamines. Vital signs reviewed and stable. Blood pressure 135/71, heart rate 70, respiratory rate 16, temp 97.8 F, and SpO2 of 91% on room air. CODE STATUS: Full code DVT prophylaxis: Heparin Anticipated discharge date: Pending clinical course Anticipated discharge place: Return to snf in custody of [facility] Patient was seen independently by Nurse Pracitioner. This document was prepared using [employer] dictation software. Please allow for errors in courtesy car driver, while rare they do occur. .Erik Jacobs, APPLE PICKER rendered care for this patient independently, reviewed the findi ngs and plan as documented in the note above. I did not physically speak with or examine the patient on this date. Objective - Vital Signs Vital signs: Vital Signs Temp 97.4 F L 05/12/24 07:34 Pulse 52 L 05/12/24 07:34 Resp 16 05/12/24 07:34 BP 147/82 05/12/24 07:34 Pulse Ox 99 05/12/24 07:34 FiO2 Intake & Output 05/11/24 05/12/24 05/12/24 18:59 06:59 18:59 Intake Total 752.947 Output Total 700 Balance 52.947 Weight 67.132 kg Intake: Intake, IV Titration 212.947 Amount Heparin Sod,Pork in 0.45% 212.947 NaCl 25,000 unit In 0.45 % NaCl 1 250ml.bag @ 12 UNITS/KG/HR 8.056 mls/hr IV .Q24H JOSIE Rx#: [id number] Oral 540 Output: Urine 700 Other: # Voids 0 - Labs CBC & Chem 7: 05/12/24 07:38 05/12/24 07:38 Labs: Abnormal Lab Results - Last 24 Hours (Table) 05/11/24 Range/Units 17:29 Ur Amphetamine Screen Positive A (Negative)
--- NOTE | 2024-05-12 14:55 | P.DS ---
Providers Date of admission: 05/11/24 01:34 Expected date of discharge: 05/12/24 Attending physician: Bhavesh Benavides MD Consults: 05/11/24 01:32 Consult Physician Urgent Consulting Provider: [facility] Consult Reason/Comments: NSTEMI Do you want consulting provider notified?: Yes, Notify in am Primary care physician: Stated None Hospital Course: Discharge Diagnosis: NSTEMI Hypertensive urgency Substance abuse with methamphetamine abuse Acute kidney injury, improved with IV fluid hydration. Hospital course: Patient is a 64-year-old male with a past medical history of methamphetamine abuse and nicotine dependence. He presented to the emergency department in custody of [facility] with reports of chest pain. Upon arrival to our facility, patient underwent evaluation in the emergency department. Vital signs upon arrival show blood pressure 187/121, heart rate 48, respiratory rate 18, temp 97.5 F, and SpO2 of 99% on room air. EKG was completed showing normal sinus rhythm at 84 bpm with frequent PVCs. Chest x-ray negative for acute cardiopulmo nary process. Labs completed and reviewed. CBC unremarkable. Coagulation profile normal findings. BMP showing hyperchloremia with chloride of 109 and elevated renal function with BUN of 25, creatinine 1.77, GFR of 39. Blood glucose 104. Magnesium 1.9. Liver profile unremarkable. Troponin elevated at 0.072. Patient started on heparin infusion for treatment of NSTEMI and admitted under our services for NSTEMI and acute kidney injury with consultation to cardiology. Troponins trended resulting at 0.072, 0.062, 0.065. Ultrasound kidneys and bladder showing atrophic kidneys without evidence for obstructive uropathy. Urine drug screen positive for amphetamines.Stress test was reported to be inconclusive EKG portion of the stress test due to reports of baseline EKG abnormalities. Lexiscan nuclear stress test reviewed reporting small reversible defect of apical septal wall with an EF of 42%. Echocardiogram was completed, report not yet available but discussed with natural developer STEM MAKER stating EF 35 to 40% with global hypokinesis and cardiology recommended discontinuation of amlodipine and starting patient on losartan otherwise clearing patient from cardiac perspective for discharge. Medically, patient is stable for discharge at this time. Patient provided with prescriptions for aspirin milligrams daily, losartan 50 mg daily, atorvastatin 40 mg daily, and metoprolol 25 mg twice daily. Patient strongly advised to avoid any and all drug use including amphetamines/methamphetamines. Patient cleared to return to correctional facility with [facility] officers at this time. Patient to follow-up outpatient with [facility] medical clinic and recommend outpatient follow-up with natural developer after discharge from correctional facility. Physical exam: Vital signs reviewed and stable. General: Nontoxic, no distress and appears stated age. Derm: Skin warm and dry, normal coloration for ethnicity. Head: Atraumatic, normocephalic and symmetric. Eyes: EOM's intact, no lid lag, and anicteric sclera Mouth: no lip lesions, mucus membranes moist Cardiovascular: regular rate and rhythm with normal S1S2, no murmur, positive posterior tibial pulses bilaterally, and cap refill < 2 seconds. Lungs: Respirations even, regular, and unlabored on room air. Lungs CTA bilaterally, no rhonchi, no rales, no wheezing, and no accessory muscle usage. Abdominal: soft, nontender to palpation, no guarding, no appreciable organomegaly Ext: ROM intact. No gross muscle atrophy, no edema, no contractures Neuro: Speech clear, face symmetrical and CN II-XII grossly intact with no noted focal neuro deficits Psych: Alert and oriented to person, place, time, and situation. Appropriate and pleasant affect. A total of 33 minutes of time were spent preparing this complex discharge summary. Pt was discharged on 05/12/2024 at 2:48 PM Patient was seen independently by Nurse Practitioner. This document was prepared using [employer] dictation software. Please allow for errors in storage engineer while rare they do occur. Erik Jacobs NP rendered care for this patient independently, reviewed the findings and plan as documented in the note above. I did not physically speak with or examine the patient on this date. Patient Condition at Discharge: Stable Plan - Discharge Summary Discharge Rx Participant: Yes New Discharge Prescriptions: New Aspirin 81 mg PO DAILY 30 Days #30 tab Losartan [Cozaar] 50 mg PO DAILY 30 Days #30 tab Atorvastatin [Lipitor] 40 mg PO DAILY 30 Days #30 tab Metoprolol Tartrate [Lopressor] 25 mg PO BID 30 Days #60 tab Discharge Medication List Aspirin 81 mg PO DAILY 30 Days #30 tab 05/12/24 [Rx] Atorvastatin [Lipitor] 40 mg PO DAILY 30 Days #30 tab 05/12/24 [Rx] Losartan [Cozaar] 50 mg PO DAILY 30 Days #30 tab 05/12/24 [Rx] Metoprolol Tartrate [Lopressor] 25 mg PO BID 30 Days #60 tab 05/12/24 [Rx] Follow up Appointment(s)/Referral(s): Paddy Harrison DO [STAFF PHYSICIAN] - 1 Week (Recommend outpatient follow-up with [facility] once released from [facility] custody.) Patient Instructions/Handouts: Chest Pain (DC) Activity/Diet/Wound Care/Special Instructions: Patient has been cleared from cardiac perspective and is medically stable for discharge into custody of [facility] officers. Prescriptions provided and patient to follow-up with [facility]. Discharge Disposition: OTHER INSTITUTION NOT DEFINED
[2024-05-12 15:01] VITALS: BP 138/82; PULSE 70
--- NOTE | 2024-05-12 17:07 | CA ---
Transthoracic Echo Report Name: Ethan Davis Age: 64 Gender: M : 1960 Exam Date: 05/12/2024 14:01 Exam Location: [place] [facility] Ht (in): 70 Wt (lb): 148 Ordering Physician: Malinda Hoyt Attending/Referring Phys: [id number], Lai Melt Superintendant Mari Duque RDCS Procedure CPT: Indications: LV function, CP, abnormal trops Cardiac Hx: Technical Quality: Good Contrast 1: Total Dose (mL): Contrast 2: Total Dose (mL): MEASUREMENTS (Male / Female) Normal Values 2D ECHO LV Diastolic Diameter PLAX 5.1 cm 4.2 - 5.9 / 3.9 - 5.3 cm LV Systolic Diameter PLAX 4.1 cm IVS Diastolic Thickness 1.1 cm 0.6 - 1.0 / 0.6 - 0.9 cm LVPW Diastolic Thickness 1.2 cm 0.6 - 1.0 / 0.6 - 0.9 cm LV Relative Wall Thickness 0.5 LVOT Diameter 2.2 cm LV Diastolic Volume MOD BP 157.5 cm??? 67 - 155 / 56 - 104 cm??? LV Systolic Volume MOD BP 96.3 cm??? 22 - 58 / 19 - 49 cm??? LV Ejection Fraction MOD BP 38.9 % >= 55 % LV Cardiac Index MOD BP 1920.8 cm???/min???m??? LV Diastolic Volume MOD 4C 153.6 cm??? LV Systolic Volume MOD 4C 91.5 cm??? LV Ejection Fraction MOD 4C 40.4 % LV Cardiac Index MOD 4C 1947.9 cm???/min???m??? LV Diastolic Length 4C 8.9 cm LV Systolic Length 4C 7.9 cm LV Diastolic Volume MOD 2C 156.7 cm??? LV Systolic Volume MOD 2C 96.5 cm??? LV Ejection Fraction MOD 2C 38.4 % LV Cardiac Index MOD 2C 1887.3 cm???/min???m??? LV Diastolic Length 2C 9.2 cm LV Systolic Length 2C 8.3 cm LA Volume 51.3 cm??? 18 - 58 / 22 - 52 cm??? LA Volume Index 28.2 cm???/m??? 16 - 28 cm???/m??? Ascending Aorta Diameter 3.6 cm DOPPLER AV Peak Velocity 122.9 cm/s AV Peak Gradient 6.0 mmHg AV Mean Velocity 90.0 cm/s AV Mean Gradient 3.5 mmHg AV Velocity Time Integral 24.5 cm LVOT Peak Velocity 94.3 cm/s LVOT Peak Gradient 3.6 mmHg LVOT Velocity Time Integral 17.6 cm LVOT Stroke Volume 64.7 cm??? LVOT Stroke Volume Index 35.2 ml/m??? LVOT Cardiac Index 2030.1 cm???/min???m??? AV Area Cont Eq vti 2.6 cm??? AV Area Cont Eq pk 2.8 cm??? MV Area PHT 3.4 cm??? Mitral E Point Velocity 30.0 cm/s Mitral A Point Velocity 63.9 cm/s Mitral E to A Ratio 0.5 MV Deceleration Time 226.5 ms TR Peak Velocity 166.8 cm/s TR Peak Gradient 11.1 mmHg PV Peak Velocity 68.9 cm/s PV Peak Gradient 1.9 mmHg FINDINGS Left Ventricle Left ventricular ejection fraction is estimated at 35-40 %. Mildly increased septal wall thickness. Mildly increased left ventricular diastolic volume. Severely increased left ventricular systolic volume. Moderately decreased left ventricular ejection fraction. Global hypokinesis. Right Ventricle Borderline right ventricular dilatation with normal function. Right ventricular systolic pressure within normal limits. Right Atrium Normal right atrial size. Left Atrium Normal left atrial size. Mitral Valve Structurally normal mitral valve. No evidence for mitral valve prolapse. No mitral stenosis. Trace mitral regurgitation. Aortic Valve Trileaflet aortic valve. No aortic valve stenosis or regurgitation. Tricuspid Valve Structurally normal tricuspid valve. No tricuspid stenosis. Trace tricuspid regurgitation. Pulmonic Valve Structurally normal pulmonic valve. No pulmonic stenosis. No pulmonic regurgitation. Pericardium Trace anterior pericardial effusion. Aorta Normal size aortic root and proximal ascending aorta. CONCLUSIONS Moderate LV systolic dysfunction with an ejection fraction of 35-40% Previewed by: Dr. Kyler Unger MD (Electronically Signed) Final Date: 12 May 2024 17:06
[2024-05-13] MEDS ORDERED: LOSARTAN 50 MG TAB PO SCH (09:00)
--- NOTE | 2024-05-27 07:24 | CDI ---
Documentation Clarification Form Date: 05/27/2024 07:13:42 AM From: Leonor Shafer Admit Date: 05/11/2024 01:34:00 AM Patient Name: Ethan Davis Visit Number: [id number] Discharge Date: 05/12/2024 04:49:00 PM ATTENTION: The Clinical Documentation Specialists (CDI) and [facility] Coding Staff appreciate your assistance in clarifying documentation. Please respond to the clarification below the line at the bottom and electronically sign. The CDI & [facility] Coding staff will review the response and follow-up if needed. Please note: Queries are made part of the Legal Health Record. If you have any questions, please contact the author of this message via ITS. Doctor/Provider: Paddy Harrison Conflicting documentation has been found in the medical record. As attending physician, please provide clarification. Per cardiology consult and PN 05/12 "Elevated troponins, flat, likely type II LA secondary to uncontrolled blood pressures, however cannot rule out CAD." Per DCS, H and P and PN's 05/11 and 05/12 "Patient started on heparin infusion for treatment of NSTEMI and admitted under our services for NSTEMI and CATHRYN with consultation from cardiology." History/Risk Factors: Clinical Indicators: Hypertensive emergency 187/121 Elevated troponins .072, .065 Treatment: Heparin Please clarify which diagnosis is most appropriate: [ ] Type II LA due to hypertensive emergency [ ] NSTEMI [ ] Other (please specify) [ ] Unable to determine MTDD
--- NOTE | 2024-05-31 13:00 | CDI ---
Documentation Clarification Form Date: 05/27/2024 07:13:42 AM From: Leonor Shafer Admit Date: 05/11/2024 01:34:00 AM Patient Name: Ethan Davis Visit Number: [id number] Discharge Date: 05/12/2024 04:49:00 PM ATTENTION: The Clinical Documentation Specialists (CDI) and [facility] Coding Staff appreciate your assistance in clarifying documentation. Please respond to the clarification below the line at the bottom and electronically sign. The CDI & [facility] Coding staff will review the response and follow-up if needed. Please note: Queries are made part of the Legal Health Record. If you have any questions, please contact the author of this message via ITS. Doctor/Provider: Paddy Harrison Conflicting documentation has been found in the medical record. As attending physician, please provide clarification. Per cardiology consult and PN 05/12 "Elevated troponins, flat, likely type II AL secondary to uncontrolled blood pressures, however cannot rule out CAD." Per DCS, H and P and PN's 05/11 and 05/12 "Patient started on heparin infusion for treatment of NSTEMI and admitted under our services for NSTEMI and CATHRYN with consultation from cardiology." History/Risk Factors: Clinical Indicators: Hypertensive emergency 187/121 Elevated troponins .072, .065 Treatment: Heparin Please clarify which diagnosis is most appropriate: [ X ] Type II AL due to hypertensive emergency [ ] NSTEMI [ ] Other (please specify) [ ] Unable to determine MTDD
== END 2024-05-12 16:49 | DRG 199 ==
LOC: EC 19:21 → 3SCARD 05-11 01:34
PROVIDERS: ADMIT Internal Medicine; ATTEND Internal Medicine
DX: I16.1 Hypertensive emergency (principal); I21.A1 Myocardial infarction type 2; I10 Essential (primary) hypertension; I49.1 Atrial premature depolarization; I49.3 Ventricular premature depolarization; F10.10 Alcohol abuse, uncomplicated; F15.10 Other stimulant abuse, uncomplicated; Z71.51 Drug abuse counseling and surveillance of drug abuser; N17.9 Acute kidney failure, unspecified; F17.200 Nicotine dependence, unspecified, uncomplicated; Z79.82 Long term (current) use of aspirin; Z79.899 Other long term (current) drug therapy
CPT/HCPCS: 36415; 71046; 76770; 78452; 80053; 80306; 83735; 84484; 85025; 85610; 85730; 93005; 93017; 93306; 96365; 96366; 96375; 99285

== ENCOUNTER → 2024-06-27 | Outpatient (CLI) | payer MEDICARE, OTHER ==
--- NOTE | 2024-06-27 16:40 | XR ---
EXAMINATION TYPE: XR Hip Bilateral and AP pelvis DATE OF EXAM: 06/27/2024 3:33 PM COMPARISON: 11/20/2009 CLINICAL INDICATION: Male, 64 years old with history of M16.1 HIP PAIN; TECHNIQUE: XR Hip Bilateral and AP pelvis; hip was examined in the frontal and lateral projections an d a AP pelvis. FINDINGS: Left hip arthroplasty with revision changes. Hypertrophic ossification are seen on the left hip. No evidence of fracture. Right hip has mild degeneration changes with joint space narrowing ost eophyte formation. No evidence for acute process, joint dislocation or significant soft tissue swelli ng. IMPRESSION: Revision left hip arthroplasty changes with hardware intact. No evidence for acute fracture. [facility], , 06/27/2024 4:38 PM
[2024-06-28 02:59] LABS: Basophils # (A) 0.04 X 10*3/uL (0.00-0.10); Basophils % (A) 0.4 %; Eosinophils # (A) 0.16 X 10*3/uL (0.04-0.35); Eosinophils % (A) 1.8 %; HCT 39.3 % (39.6-50.0); HGB 12.3 g/dL (13.0-17.0); Lymphocytes # (A) 3.77 X 10*3/uL (0.90-5.00); Lymphocytes % (A) 41.5 %; MCH 29.9 pg (27.0-32.0); MCHC 31.3 g/dL (32.0-37.0); MCV 95.6 FL (80.0-97.0); Mean Platelet Volume 11.6 FL (9.5-12.2); Monocytes # (A) 0.78 X 10*3/uL (0.20-1.00); Monocytes % (A) 8.6 %; NRBC Per 100 WBC 0 X 10*3/uL (0.00-0.01); Neutrophils # (A) 4.32 X 10*3/uL (1.80-7.70); Neutrophils % (A) 47.5 %; Platelet Count 383 X 10*3/uL (140-440); RBC 4.11 X 10*6/uL (4.40-5.60); RDW 13.6 % (11.5-14.5); WBC 9.09 X 10*3/uL (4.50-10.00)
[2024-06-28 03:22] LABS: ALT 37 U/L (10-49); AST 35 U/L (14-35); Albumin 4.1 g/dL (3.8-4.9); Albumin/Globulin Ratio 1.71 Ratio (1.60-3.17); Alkaline Phosphatase 85 U/L (41-126); BUN/Creat Ratio 12.94 Ratio (12.00-20.00); Calcium 9.3 mg/dL (8.7-10.3); Chloride 110 mmol/L (96-109); Chol/HDL Ratio 3.23 Ratio; Globulin 2.4 g/dL (1.6-3.3); Glucose 87 mg/dL (70-110); LDL Cholesterol,Calculated 103.7 mg/dL (0.0-131.0); Potassium 5.2 mmol/L (3.5-5.5); Sodium 143 mmol/L (135-145); Total Bilirubin 0.2 mg/dL (0.3-1.2); Total Protein 6.5 g/dL (6.2-8.2); VLDL Calculation 16.46 mg/dL (5.00-40.00)
== END | disposition home or self-care (01) ==
LOC: RADXRMAIN 15:05
PROVIDERS: ATTEND Internal Medicine
DX: Z00.00 Encounter for general adult medical examination without abnormal findings (principal); Z11.59 Encounter for screening for other viral diseases; M16.10 Unilateral primary osteoarthritis, unspecified hip; I49.3 Ventricular premature depolarization; F32.A Depression, unspecified; Z12.5 Encounter for screening for malignant neoplasm of prostate
CPT/HCPCS: 86803; 80061; 80053; 84443; 83735; 85025; 73521; G0103

== ENCOUNTER → 2024-07-04 | Outpatient (CLI) | payer MEDICARE, OTHER ==
[2024-07-04 11:48] LABS: Appearance,Urine Clear (Clear); Bilirubin,Urine Negative (Negative); Blood,Urine Negative (Negative); Color,Urine Colorless; Glucose,Urine (UA) Negative (Negative); Ketones,Urine Negative (Negative); Leukocyte Esterase,Urine Negative (Negative); Nitrite,Urine Negative (Negative); Protein,Urine Negative (Negative); Specific Gravity,Urine 1.005 (1.001-1.035); Urobilinogen,Urine <2.0 mg/dL (<2.0)
[2024-07-04 12:08] LABS: Basophils % (A) 1 %; Eosinophils # (A) 0.2 k/uL (0-0.7); Eosinophils % (A) 2 %; HCT 41.4 % (39.0-53.0); Lymphocytes # (A) 2.9 k/uL (1.0-4.8); Lymphocytes % (A) 40 %; MCH 29.4 pg (25.0-35.0); MCHC 31.4 g/dL (31.0-37.0); MCV 93.7 fL (80.0-100.0); Mean Platelet Volume 9.2; Monocytes # (A) 0.6 k/uL (0-1.0); Monocytes % (A) 8 %; Neutrophils # (A) 3.4 k/uL (1.3-7.7); Neutrophils % (A) 47 %; Platelet Count 387 k/uL (150-450); RBC 4.42 m/uL (4.30-5.90); RDW 13.3 % (11.5-15.5); Reticulocyte % 1.3 % (0.5-2.0); WBC 7.3 k/uL (3.8-10.6)
--- NOTE | 2024-07-04 12:21 | XR ---
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 FINDINGS: Postsurgical changes are noted. There is lucency surrounding the screw within the tibia. There is gen eralized demineralization. Chronic appearing deformity of the patella suggests prior fracture. Correl ate clinically. Sclerotic changes involving the distal diaphysis of the femur could be related to a b one infarct or chondroid lesion. There are soft tissue areas of ossification possibly heterotopic. IMPRESSION: 1. Postsurgical change. There is lucency surrounding the screw of the tibial plate. Hardware loosenin g or malfunction not excluded. 2. Sclerotic lesion distal diaphysis femur could be related to prior bone infarct or chondroid lesion . 3. Deformity of the inferior pole of patella is favored to represent remote fracture but should be co rrelated clinically. No prior exams available for comparison. [facility], , 07/04/2024 12:19 PM
[2024-07-04 16:27] LABS: Protein, Total 6.7 g/dL (6.2-8.2)
[2024-07-04 16:38] LABS: % Iron Saturation 23.43 (15.00-50.00); BUN/Creat Ratio 14.69 Ratio (12.00-20.00); Blood Urea Nitrogen 23.5 mg/dL (9.0-27.0); Calcium 9.7 mg/dL (8.7-10.3); Carbon Dioxide 25.7 mmol/L (21.6-31.8); Chloride 105 mmol/L (96-109); Glucose 106 mg/dL (70-110); Iron 82 UG/DL (65-175); Potassium 5.6 mmol/L (3.5-5.5); Sodium 140 mmol/L (135-145); Total Iron Binding Capacity 350 UG/DL (228-460)
== END | disposition home or self-care (01) ==
LOC: RADXRMAIN 10:47
PROVIDERS: ATTEND Internal Medicine
DX: D64.9 Anemia, unspecified (principal); N28.9 Disorder of kidney and ureter, unspecified
CPT/HCPCS: 80048; 81003; 82607; 82746; 83540; 83550; 84165; 85025; 85045; 86334

== ENCOUNTER → 2024-07-13 | Outpatient (CLI) | payer MEDICARE, OTHER ==
[2024-07-13 15:26] LABS: BUN/Creat Ratio 13.31 Ratio (12.00-20.00); Blood Urea Nitrogen 21.3 mg/dL (9.0-27.0); Calcium 9.4 mg/dL (8.7-10.3); Carbon Dioxide 22.9 mmol/L (21.6-31.8); Chloride 108 mmol/L (96-109); Glucose 96 mg/dL (70-110); Potassium 4.7 mmol/L (3.5-5.5); Sodium 143 mmol/L (135-145)
== END | disposition home or self-care (01) ==
LOC: LABWHC1 12:20
PROVIDERS: ATTEND Internal Medicine
DX: N28.9 Disorder of kidney and ureter, unspecified (principal)
CPT/HCPCS: 36415; 80048